=== PATIENT | female | born 1945 | race Asian ===

== ENCOUNTER 2018-01-04 15:27 | Outpatient (CLI) | payer MEDICARE, OTHER ==
--- NOTE | 2018-01-04 15:53 | RAD ---
LEFT HIP TWO VIEW 01/04/18 HISTORY: M25.552 - Left hip pain. COMPARISON: None. FINDINGS: No fracture. No malalignment. Mild enthesophytic changes of the greater trochanter. 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 Pubic symphysis is unremarkable. IMPRESSION: 1. No acute abnormality. 2. Mild degenerative change of the SI joints. POS: [facility]
== END 2018-01-04 15:28 | disposition home or self-care (01) ==
LOC: SCSRAD 15:27
PROVIDERS: ATTEND Family Medicine
DX: M25.552 Pain in left hip (principal)

== ENCOUNTER 2018-01-24 09:32 | Outpatient (CLI) | payer MEDICARE, OTHER ==
--- NOTE | 2018-01-24 10:59 | RAD ---
PA AND LATERAL CHEST: Date: 01/24/18 HISTORY: Cough and congestion for the past week. COMPARISON: None available. FINDINGS: The cardiac silhouette is borderline enlarged. Pulmonary vasculature is within normal limits. There i s symmetric biapical pleural thickening noted. There are increased linear densities at each lung base which could be related to chronic interstitial fibrotic lung changes or areas of atelectasis. No con solidation or pleural fluid is seen. Minimal vascular calcifications thoracic aorta. Osseous structur es are intact. Surgical clips overlie the right upper quadrant. IMPRESSION: Increased linear densities at each lung base, which could be related to atelectasis or scarring. Ther e is otherwise no acute cardiopulmonary process. POS: [facility]
== END 2018-01-24 09:33 | disposition home or self-care (01) ==
LOC: SCSRAD 09:32
PROVIDERS: ATTEND Nurse Practitioner Family
DX: J40 Bronchitis, not specified as acute or chronic (principal)
CPT/HCPCS: 71046

== ENCOUNTER 2019-02-16 12:53 | Outpatient (CLI) | payer MEDICARE, OTHER ==
--- NOTE | 2019-02-16 13:43 | MMO ---
Bilateral MAMMO Bilat Screen [facility]. CLINICAL HISTORY: Patient is 73 years old and is seen for screening. The patient has no family history of breast cancer. The patient has no personal history of cancer. VIEWS: The views performed were: bilateral craniocaudal with tomosynthesis and bilateral mediolateral oblique with tomosynthesis. FILMS COMPARED: The present examination has been compared to prior imaging studies performed at [facility] on 01/01/2004, 04/28/2005, 03/18/2010, 12/14/2011, 06/26/2015 and 12/07/2016. MAMMOGRAM FINDINGS: There are scattered fibroglandular densities. There is a focal asymmetry seen in the CC view only seen in the posterior outer region of the right breast. In the left breast, there are no suspicious masses, calcifications or areas of architectural distortion. IMPRESSION: FOCAL ASYMMETRY IN THE RIGHT BREAST REQUIRES ADDITIONAL EVALUATION. RECOMMEND DIAGNOSTIC MAMMOGRAM. ULTRASOUND MAY ALSO PROVE USEFUL AT RECALL. THE RESULTS OF THIS EXAM WERE SENT TO THE PATIENT. ACR BI-RADS Category 0 - Incomplete: Need additional imaging evaluation. [facility] will notify the patient of the need for additional imaging services. MAMMOGRAPHY NOTE: 1. A negative mammogram report should not delay a biopsy if a dominant of clinically suspicious mass is present. 2. Approximately 10% to 15% of breast cancers are not detected by mammography. 3. Adenosis and dense breasts may obscure an underlying neoplasm.
== END 2019-02-16 12:54 | disposition home or self-care (01) ==
LOC: BICMAMMO 12:53
PROVIDERS: ATTEND Family Medicine
DX: Z12.31 Encounter for screening mammogram for malignant neoplasm of breast (principal); R92.8 Other abnormal and inconclusive findings on diagnostic imaging of breast
CPT/HCPCS: 77063; 77067

== ENCOUNTER 2019-02-21 12:43 | Outpatient (CLI) | payer MEDICARE, OTHER ==
--- NOTE | 2019-02-21 13:16 | MMO ---
Right Breast MAMMO Unilat Diag [facility]. CLINICAL HISTORY: Patient is 73 years old and is seen for additional evaluation requested at current screening. The patient has no family history of breast cancer. The patient has no personal history of cancer. VIEWS: The views performed were: right craniocaudal spot compression with tomosynthesis and right mediolateral with tomosynthesis. FILMS COMPARED: The present examination has been compared to prior imaging studies performed at [facility] on 01/01/2004, 04/28/2005, 03/18/2010, 12/14/2011, 06/26/2015, 12/07/2016 and 02/16/2019. MAMMOGRAM FINDINGS: The breast is heterogeneously dense, which could obscure a lesion on mammography. Finding of concern on preceding screening mammogram is stable dating back to 2005 mammogram, and is less conspicuous upon additional imaging. There are no suspicious masses, suspicious calcifications, or new areas of architectural distortion. IMPRESSION: THERE IS NO MAMMOGRAPHIC EVIDENCE OF MALIGNANCY. SUPERIMPOSITION OF BENIGN BREAST PARENCHYMA. A ROUTINE FOLLOW-UP MAMMOGRAM IN 1 YEAR IS RECOMMENDED. THE RESULTS OF THIS EXAM WERE SENT TO THE PATIENT. ACR BI-RADS Category 2 - Benign finding MAMMOGRAPHY NOTE: 1. A negative mammogram report should not delay a biopsy if a dominant of clinically suspicious mass is present. 2. Approximately 10% to 15% of breast cancers are not detected by mammography. 3. Adenosis and dense breasts may obscure an underlying neoplasm.
== END 2019-02-21 12:44 | disposition home or self-care (01) ==
LOC: BICMAMMO 12:43
PROVIDERS: ATTEND Family Medicine
DX: Z12.31 Encounter for screening mammogram for malignant neoplasm of breast (principal)
CPT/HCPCS: 77065; G0279